=== PATIENT | female | born 1935 | race Caucasian/White ===

== ENCOUNTER 2021-05-21 07:52 | Day surgery (SDC) | payer MEDICARE, OTHER ==
[2021-05-17 12:32] LABS: BASOPHILS % (AUTO) 0.5 % (0-1); EOSINOPHILS # (AUTO) 0.1 X10'3 (0-0.9); LYMPHOCYTES # (AUTO) 0.9 X10'3 (1.1-4.8); MEAN CORPUSCULAR HGB CONC 33.3 g/dL (33.0-36.5); MEAN CORPUSCULAR VOLUME 93.3 FL (78-98); MEAN PLATELET VOLUME 9.1 FL (7.4-10.4); MONOCYTES # (AUTO) 0.6 X10'3 (0-0.9); MONOCYTES % (AUTO) 8.3 % (2-12); NEUTROPHILS # (AUTO) 5.4 X10'3 (1.8-7.7); NEUTROPHILS % (AUTO) 77.2 % (42-75); PRE OP HEMATOCRIT 38.3 % (35.0-45.0); PRE OP HEMOGLOBIN 12.7 g/dL (12.0-16.0); PRE OP PLATELET COUNT 219 X10'3 (140-440); RED CELL DISTRIBUTION WIDTH 13.3 % (11.5-14.5)
[2021-05-17 12:54] LABS: ALBUMIN 4.3 G/DL (3.4-5.0); ALBUMIN/GLOBULIN RATIO 1.3 (1.1-1.5); ALKALINE PHOSPHATASE 65 IU/L (46-116); BLOOD UREA NITROGEN 10 MG/DL (7-18); BUN/CREATININE RATIO 14.5 (6.6-38.0); CALCIUM 8.6 MG/DL (8.5-10.1); CHLORIDE 100 MMOL/L (99-107); CREATININE 0.69 MG/DL (0.40-0.90); PRE OP ALT 26 U/L (30-65); PRE OP ANION GAP 11 (8-16); PRE OP AST 24 U/L (10-37); PRE OP BILIRUB, TOTAL 0.6 MG/DL (0.0-1.0); PRE OP GLUCOSE 98 MG/DL (70-104); PRE OP POTASSIUM 3.8 MMOL/L (3.4-5.1); PRE OP SODIUM 137 MMOL/L (135-145); TOTAL CARBON DIOXIDE 25.7 MMOL/L (24-32); TOTAL PROTEIN 7.5 G/DL (6.4-8.2); eGFR 81 ML/MIN
[~2021-05-21] VITALS: Ht 154.9 cm; Wt 42.6 kg
[2021-05-21] VITALS (7 sets, daily range): BP systolic 124–155; BP diastolic 60–78
[~2021-05-21 07:52] MED LIST: BISO5TAB29 PO; BUPIVAcaine/PF 2.5mg/ml (0.25%) 10ml vial ONE; CALC-853 PO; DOCUMENT DATE & TIME OF BETA-BLOCKER PO ONE; KRIL1CAP21 PO; LEVO100T9 PO; MAGN250T11 PO; MULT-1219 PO; OMEP-50 PO; OMEP40CA21 PO; SIMV-45 PO; cefazolin/dext.iso 2gm/100ml IV ONE; famotidine 20mg tablet PO ONE; ringers solution, lacted 1,000 ML IV SCH
[2021-05-21] MEDS ORDERED: meperidine/PF 25mg/ml syringe IV PRN ×3 (08:55)
[2021-05-21] MEDS ORDERED: morphine 2 MG/ML inj. syringe IV PRN (08:55)
[2021-05-21] MEDS ORDERED: proCHLORperazine 10 MG/2 ml inj IV PRN (08:55)
[2021-05-21] MEDS ORDERED: ringers solution, lacted 1,000 ML IV SCH (08:55)
[2021-05-21] MEDS ORDERED: ondansetron/PF 4mg/2ml inj IV PRN (08:55)
[2021-05-21] MEDS ORDERED: morphine 4 MG/ML inj SYRINge IV PRN (08:55)
[2021-05-21] MEDS ORDERED: LIDOcaine 0.5% (5mg/ml) 50ml vial ONE (10:15)
[2021-05-21] MEDS ORDERED: midazolam 1 mg/ML 2ml injection ONE (10:42)
[2021-05-21] MEDS ORDERED: fentaNYL/PF 50MCG/1 ML 2ML syringe ONE (10:42)
[2021-05-21] MEDS ORDERED: propofol inj 20 ML IV ONE (11:20)
--- NOTE | 2021-05-21 11:35 | NUR ---
Received from OR via [facility], accompanied by Anesthesiologist DR GIVENS and report given by Anesthesiologist. PATIENT AWAKE AND ALERT, NO S/S OF PAIN, V/S WNL, CSM INTACT, SCD ON, PIV TO LUE, RIGHT HAND ELEVATED WITH ICE, DSRG-CDI, FINGERS-PINK/WARM/+CAP REFILL
--- NOTE | 2021-05-21 12:35 | NUR ---
ALL DISCHARGE CRITERIA HAS BEEN MET. VSS, DENIES PAIN, SPLINT AND DRSG TO RIGHT HAND-CDI, FIRST FINGER AND THUMB EXPOSED-GOOD CSM, PINK, WARM, ABLE TO MOVE FINGERS, ABLE TO SAFELY AMBULATE AND TRANSFER SELF. IV TAKEN OUT WITHOUT ANY COMPLICATIONS. ALL DISCHARGE INSTRUCTIONS COVERED WITH PATIENT AND ALL QUESTIONS ANSWERED. PATIENT TAKEN OUT VIA WHEELCHAIR WITH ALL BELONGINGS TO PERSONAL VEHICLE WHERE FAMILY DROVE PATIENT HOME.
== END 2021-05-21 12:35 | disposition home or self-care (01) ==
LOC: PAS 07:52
PROVIDERS: ATTEND Orthopaedic Surgery Hand Surgery
DX: M19.041 Primary osteoarthritis, right hand (principal); M67.441 Ganglion, right hand; E03.9 Hypothyroidism, unspecified; K21.9 Gastro-esophageal reflux disease without esophagitis; M81.0 Age-related osteoporosis without current pathological fracture; I10 Essential (primary) hypertension; M19.042 Primary osteoarthritis, left hand; Z20.822 Contact with and (suspected) exposure to COVID-19; Z98.890 Other specified postprocedural states; Z90.710 Acquired absence of both cervix and uterus; Z72.89 Other problems related to lifestyle; Z87.891 Personal history of nicotine dependence; Z96.643 Presence of artificial hip joint, bilateral; Z79.899 Other long term (current) drug therapy
CPT/HCPCS: 26860; 36415; 80053; 85025; 93005; C1713; J2001; J2250; J2704; J3010; J3490; U0003; U0005; Z7506; Z7512; A4215; A4615; J7120

== ENCOUNTER 2021-07-19 08:34 | Day surgery (SDC) | payer MEDICARE, OTHER ==
[2021-07-12 12:05] LABS: BASOPHILS # (AUTO) 0.1 X10'3 (0-0.2); BASOPHILS % (AUTO) 0.8 % (0-1); EOSINOPHILS # (AUTO) 0.1 X10'3 (0-0.9); EOSINOPHILS % (AUTO) 1.3 % (0-6); LYMPHOCYTES # (AUTO) 0.9 X10'3 (1.1-4.8); LYMPHOCYTES % (AUTO) 14.1 % (21-51); MEAN CORPUSCULAR HEMOGLOBIN 30.9 PG (27.0-31.0); MEAN CORPUSCULAR HGB CONC 33.1 g/dL (33.0-36.5); MEAN CORPUSCULAR VOLUME 93.5 FL (78-98); MEAN PLATELET VOLUME 9.7 FL (7.4-10.4); MONOCYTES # (AUTO) 0.6 X10'3 (0-0.9); MONOCYTES % (AUTO) 9.9 % (2-12); NEUTROPHILS # (AUTO) 4.7 X10'3 (1.8-7.7); NEUTROPHILS % (AUTO) 73.9 % (42-75); PRE OP HEMATOCRIT 39.3 % (35.0-45.0); PRE OP PLATELET COUNT 210 X10'3 (140-440); RED CELL DISTRIBUTION WIDTH 13.1 % (11.5-14.5)
[2021-07-12 12:19] LABS: ALBUMIN 3.9 G/DL (3.4-5.0); ALBUMIN/GLOBULIN RATIO 1.1 (1.1-1.5); ALKALINE PHOSPHATASE 53 IU/L (46-116); BLOOD UREA NITROGEN 14 MG/DL (7-18); BUN/CREATININE RATIO 23.3 (6.6-38.0); CALCIUM 8.9 MG/DL (8.5-10.1); CHLORIDE 102 MMOL/L (99-107); PRE OP ALT 25 U/L (30-65); PRE OP ANION GAP 9 (8-16); PRE OP AST 21 U/L (10-37); PRE OP BILIRUB, TOTAL 0.4 MG/DL (0.0-1.0); PRE OP GLUCOSE 101 MG/DL (70-104); PRE OP POTASSIUM 4.1 MMOL/L (3.4-5.1); PRE OP SODIUM 140 MMOL/L (135-145); TOTAL CARBON DIOXIDE 28.6 MMOL/L (24-32); TOTAL PROTEIN 7.3 G/DL (6.4-8.2); eGFR > 90 ML/MIN
[~2021-07-19] VITALS: Ht 152.4 cm; Wt 42.2 kg
[~2021-07-19 08:34] MED LIST changes: +ASPI-529 PO; -BUPIVAcaine/PF 2.5mg/ml (0.25%) 10ml vial ONE; -SIMV-45 PO; -cefazolin/dext.iso 2gm/100ml IV ONE; +cefazolin/dext.iso 2gm/50ml 50 ML IV ONE
[2021-07-19 09:05] VITALS: BP 111/70
[2021-07-19] MEDS ORDERED: labetalol 20mg/4ml (5mg/ml) syringe IV PRN (10:15)
[2021-07-19] MEDS ORDERED: morphine 4 MG/ML inj SYRINge IV PRN (10:15)
[2021-07-19] MEDS ORDERED: ringers solution, lacted 1,000 ML IV SCH (10:15)
[2021-07-19] MEDS ORDERED: morphine 2 MG/ML inj. syringe IV PRN (10:15)
[2021-07-19] MEDS ORDERED: fentaNYL/PF 50MCG/1 ML 2ML syringe IV PRN ×2 (10:15)
[2021-07-19] MEDS ORDERED: hydrALAZINE 20mg/ml inj. IV PRN (10:15)
[2021-07-19] MEDS ORDERED: ondansetron/PF 4mg/2ml inj IV PRN (10:15)
[2021-07-19] MEDS ORDERED: midazolam 1 mg/ML 2ml injection ONE ×2 (11:04→11:50)
[2021-07-19] MEDS ORDERED: ROPIVAcaine 0.5% (5mg/ml) 30ml vial ONE (11:48)
[2021-07-19 12:30] VITALS: BP 139/69
--- NOTE | 2021-07-19 12:30 | NUR ---
PT ARRIVED TO RECOVERY ROOM VIA GURNEY, ACCOMPANIED BY DR MACHADO, ANESTHESIA, REPORT GIVEN. PT AWAKE, DENIES PAIN, VSS, LEFT HAND WRAPPED-DRSG INTACT- MIDDLE FINGER SPLINTED, SOME DRAINAGE NOTED, NO REINFORCEMENT NEEDED, ICE APPLIED. 20G PIV TO LUIS
[2021-07-19 12:40] VITALS: BP 143/63
[2021-07-19 12:50] VITALS: BP 131/69
[2021-07-19 13:00] VITALS: BP 141/59
--- NOTE | 2021-07-19 13:30 | NUR ---
PT UP AND GETTING DRESSED, VSS, DENIES PAIN, PIV D/CD-CANULA INTACT, DRSG TO LEFT HAND-INTACT WITH SPLINT, SMALL AMOUNT OF DRAINAGE UNCHANGED FROM ARRIVAL, CSM INTACT TO LEFT HAND/FINGERS, DISCHARGE INSTRUCTIONS GIVEN TO PT-ALL QUESTIONS ANSWERED, PT TAKEN WITH ALL BELONGINGS TO SONS VEHICLE FOR TRANSPORT HOME.
== END 2021-07-19 13:30 | disposition home or self-care (01) ==
LOC: PAS 08:34
PROVIDERS: ATTEND Orthopaedic Surgery Hand Surgery
DX: M19.042 Primary osteoarthritis, left hand (principal); M19.041 Primary osteoarthritis, right hand; Z20.822 Contact with and (suspected) exposure to COVID-19; Z79.899 Other long term (current) drug therapy; Z79.82 Long term (current) use of aspirin; Z98.890 Other specified postprocedural states; Z90.710 Acquired absence of both cervix and uterus; Z96.649 Presence of unspecified artificial hip joint; Z87.891 Personal history of nicotine dependence; Z72.89 Other problems related to lifestyle
CPT/HCPCS: 26860; 36415; 80053; 82948; 85025; C1713; J2250; J7120; U0003; U0005; Z7506; Z7512; A4215; A4618; A7000; J2795

== ENCOUNTER 2022-02-14 05:50 | Day surgery (SDC) | payer MEDICARE, OTHER ==
[2022-02-07 12:30] LABS: BASOPHILS # (AUTO) 0.1 X10'3 (0-0.2); BASOPHILS % (AUTO) 0.8 % (0-1); EOSINOPHILS # (AUTO) 0.1 X10'3 (0-0.9); EOSINOPHILS % (AUTO) 0.9 % (0-6); LYMPHOCYTES % (AUTO) 15.8 % (21-51); MEAN CORPUSCULAR HEMOGLOBIN 30.5 PG (27.0-31.0); MEAN CORPUSCULAR HGB CONC 33.7 g/dL (33.0-36.5); MEAN CORPUSCULAR VOLUME 90.3 FL (78-98); MEAN PLATELET VOLUME 9.2 FL (7.4-10.4); MONOCYTES # (AUTO) 0.5 X10'3 (0-0.9); MONOCYTES % (AUTO) 8.1 % (2-12); NEUTROPHILS # (AUTO) 4.9 X10'3 (1.8-7.7); NEUTROPHILS % (AUTO) 74.4 % (42-75); PRE OP HEMATOCRIT 38.9 % (35.0-45.0); PRE OP HEMOGLOBIN 13.1 g/dL (12.0-16.0); PRE OP PLATELET COUNT 209 X10'3 (140-440); RED BLOOD COUNT 4.31 X10'6 (4.20-5.60); RED CELL DISTRIBUTION WIDTH 13.3 % (11.5-14.5)
[2022-02-07 12:52] LABS: ALBUMIN 4.2 G/DL (3.4-5.0); ALBUMIN/GLOBULIN RATIO 1.1 (1.1-1.5); ALKALINE PHOSPHATASE 43 IU/L (46-116); BLOOD UREA NITROGEN 16 MG/DL (7-18); BUN/CREATININE RATIO 22.5 (6.6-38.0); CALCIUM 9.3 MG/DL (8.5-10.1); CREATININE 0.71 MG/DL (0.40-0.90); PRE OP ALT 25 U/L (30-65); PRE OP AST 30 U/L (10-37); PRE OP BILIRUB, TOTAL 0.6 MG/DL (0.0-1.0); PRE OP GLUCOSE 93 MG/DL (70-104); TOTAL PROTEIN 7.9 G/DL (6.4-8.2); eGFR 78 ML/MIN
[2022-02-07 13:10] LABS: CHLORIDE 97 MMOL/L (99-107); PRE OP ANION GAP 13 (8-16); PRE OP POTASSIUM 3.7 MMOL/L (3.4-5.1); PRE OP SODIUM 135 MMOL/L (135-145); TOTAL CARBON DIOXIDE 25.5 MMOL/L (24-32)
[~2022-02-14] VITALS: Ht 149.9 cm; Wt 42.0 kg
[2022-02-14] VITALS (7 sets, daily range): BP systolic 128–140; BP diastolic 58–80
[~2022-02-14 05:50] MED LIST changes: -OMEP-50 PO; +OMEP20CA16 PO; +SIMV-45 PO; +ceFAZolin inj. 2,000 MG in dextrose 5%-water 100 ML IV ONE; -cefazolin/dext.iso 2gm/50ml 50 ML IV ONE
[2022-02-14] MEDS ORDERED: LIDOcaine 0.5% (5mg/ml) 50ml vial ONE (07:11)
[2022-02-14] MEDS ORDERED: proCHLORperazine 10 MG/2 ml inj IV PRN (07:40)
[2022-02-14] MEDS ORDERED: ringers solution, lacted 1,000 ML IV SCH (07:40)
[2022-02-14] MEDS ORDERED: morphine 4 MG/ML inj SYRINge IV PRN (07:40)
[2022-02-14] MEDS ORDERED: morphine 2 MG/ML inj. syringe IV PRN (07:40)
[2022-02-14] MEDS ORDERED: ondansetron/PF 4mg/2ml inj IV PRN (07:40)
[2022-02-14] MEDS ORDERED: meperidine/PF 25mg/ml syringe IV PRN ×3 (07:40)
[2022-02-14] MEDS ORDERED: fentaNYL/PF 50MCG/1 ML 2ML syringe ONE (07:54)
[2022-02-14] MEDS ORDERED: midazolam 1 mg/ML 2ml injection ONE (07:55)
[2022-02-14] MEDS ORDERED: BUPIVAcaine 0.5% inj/PF 30 ML ONE (08:09)
[2022-02-14] MEDS ORDERED: BUPIVAcaine 0.5% inj/PF 30 ml vial IJ ONE (08:29)
[2022-02-14] MEDS ORDERED: propofol inj 20 ML IV ONE (08:31)
--- NOTE | 2022-02-14 08:41 | NUR ---
Received from OR via [facility], accompanied by Anesthesiologist DR GIVENS and report given by Anesthesiologist. PT AWAKE, DENIES PAIN, LEFT HAND AND INDEX FINGER W/MEHUL WRAP COVERING INCISION/SPLINT CDI. FINGERS PWD, SHEARER HELPER 1-2 SECONDS. Addendum: 02/14/22 at 0857 by Dinorah Ralph RN Amended: Links added.
--- NOTE | 2022-02-14 09:51 | NUR ---
PT UP AND ABLE TO AMBULATE SAFELY, TOLERATING ORAL INTAKE. D/C INSTRUCTIONS GIVEN AND GONE OVER W/PT WHO VERBALIZED UNDERSTANDING. PT D/CD TO HOME VIA W/C TO PRIVATE VEHICLE W/O INCIDENT W/FAMILY MEMBER. Addendum: 02/14/22 at 1010 by Dinorah Ralph RN Amended: Links added.
== END 2022-02-14 09:51 | disposition home or self-care (01) ==
LOC: PAS 05:50
PROVIDERS: ATTEND Orthopaedic Surgery Hand Surgery
DX: M19.042 Primary osteoarthritis, left hand (principal); Z79.899 Other long term (current) drug therapy; Z20.822 Contact with and (suspected) exposure to COVID-19; Z90.710 Acquired absence of both cervix and uterus; Z98.890 Other specified postprocedural states; Z96.643 Presence of artificial hip joint, bilateral; Z87.891 Personal history of nicotine dependence; Z72.89 Other problems related to lifestyle
CPT/HCPCS: 26531; 36415; 80053; 82948; 85025; 93005; J0690; J2250; J2704; J3010; J3490; J7030; J7060; J7120; L8630; S0020; U0003; U0005; Z7506; Z7512; A4215; A4618; A7000

== ENCOUNTER 2022-06-13 08:25 | Day surgery (SDC) | payer MEDICARE, OTHER ==
[2022-06-02 10:47] LABS: BASOPHILS # (AUTO) 0.1 X10'3 (0-0.2); BASOPHILS % (AUTO) 0.9 % (0-1); EOSINOPHILS # (AUTO) 0.1 X10'3 (0-0.9); LYMPHOCYTES # (AUTO) 0.9 X10'3 (1.1-4.8); MEAN CORPUSCULAR HGB CONC 33.8 g/dL (33.0-36.5); MEAN CORPUSCULAR VOLUME 91.9 FL (78-98); MEAN PLATELET VOLUME 9.4 FL (7.4-10.4); MONOCYTES # (AUTO) 0.7 X10'3 (0-0.9); MONOCYTES % (AUTO) 9.8 % (2-12); NEUTROPHILS # (AUTO) 5.7 X10'3 (1.8-7.7); NEUTROPHILS % (AUTO) 76.3 % (42-75); PRE OP HEMATOCRIT 38.9 % (35.0-45.0); PRE OP HEMOGLOBIN 13.1 g/dL (12.0-16.0); PRE OP PLATELET COUNT 207 X10'3 (140-440); RED BLOOD COUNT 4.23 X10'6 (4.20-5.60); RED CELL DISTRIBUTION WIDTH 13.1 % (11.5-14.5)
[2022-06-02 10:53] LABS: ALBUMIN/GLOBULIN RATIO 1.1 (1.1-1.5); ALKALINE PHOSPHATASE 44 IU/L (46-116); BLOOD UREA NITROGEN 12 MG/DL (7-18); BUN/CREATININE RATIO 18.8 (6.6-38.0); CALCIUM 8.9 MG/DL (8.5-10.1); CHLORIDE 99 MMOL/L (99-107); CREATININE 0.64 MG/DL (0.40-0.90); PRE OP ALT 28 U/L (30-65); PRE OP ANION GAP 10 (8-16); PRE OP AST 29 U/L (10-37); PRE OP BILIRUB, TOTAL 0.3 MG/DL (0.0-1.0); PRE OP GLUCOSE 109 MG/DL (70-104); PRE OP POTASSIUM 3.9 MMOL/L (3.4-5.1); PRE OP SODIUM 137 MMOL/L (135-145); TOTAL CARBON DIOXIDE 28.5 MMOL/L (24-32); TOTAL PROTEIN 7.6 G/DL (6.4-8.2); eGFR 88 ML/MIN
[~2022-06-13] VITALS: Ht 149.9 cm; Wt 41.3 kg
[~2022-06-13 08:25] MED LIST changes: +BUPIVAcaine/PF 2.5mg/ml (0.25%) 10ml vial ONE
[2022-06-13] MEDS ORDERED: LIDOcaine 0.5% (5mg/ml) 50ml vial ONE (10:13)
[2022-06-13 11:41] VITALS: BP 134/72
[2022-06-13 11:43] VITALS: BP 134/72
[2022-06-13] MEDS ORDERED: fentaNYL/PF 50MCG/1 ML 2ML syringe ONE (13:17)
[2022-06-13] MEDS ORDERED: midazolam 1 mg/ML 2ml injection ONE (13:17)
[2022-06-13] MEDS ORDERED: morphine 2 MG/ML inj. syringe IV PRN (13:55)
[2022-06-13] MEDS ORDERED: ringers solution, lacted 1,000 ML IV SCH (13:55)
[2022-06-13] MEDS ORDERED: HYDROmorphone/PF 0.2 MG/ML SYRINGE IV PRN (13:55)
[2022-06-13] MEDS ORDERED: ondansetron/PF 4mg/2ml inj IV PRN (13:55)
[2022-06-13] MEDS ORDERED: propofol inj 20 ML IV ONE (14:35)
[2022-06-13 14:40] VITALS: BP 147/61
--- NOTE | 2022-06-13 14:40 | NUR ---
Received from OR via [facility], accompanied by Anesthesiologist DR. ALBERT and report given by Anesthesiolgist. DENIES PAIN. DRESSING TO LEFT HAND CDI, ICE APPLIED. RIGH HAND 20G PIV WITH LR RUNNING AT 100ML/HR. VS WNL'S. ALERT, FORGETFUL BUT APPROPRIATE.
[2022-06-13 14:50] VITALS: BP 129/51
[2022-06-13 15:00] VITALS: BP 144/58
[2022-06-13 15:10] VITALS: BP 142/61
--- NOTE | 2022-06-13 15:10 | NUR ---
PATIENT MEETS DISCHARGE CRITERIA. SHE IS IN A HURRY TO GET HOME TO HER , THAT IS WITH A SITTER AND WILL NOT HAVE COVERAGE AT 1530. DENIES PAIN. PIV REMOVED. DISCHARGE INSTRUCTIONS REVIEWED AND SIGNED. ALL BELONGINGS ACCOUNTED FOR AND DISCHARGED WITH PATIENT. DRESSING CDI.
== END 2022-06-13 15:10 | disposition home or self-care (01) ==
LOC: PAS 08:25
PROVIDERS: ATTEND Orthopaedic Surgery Hand Surgery
DX: M19.042 Primary osteoarthritis, left hand (principal); M19.041 Primary osteoarthritis, right hand; K21.9 Gastro-esophageal reflux disease without esophagitis; Z79.899 Other long term (current) drug therapy; Z98.890 Other specified postprocedural states; Z90.710 Acquired absence of both cervix and uterus; Z96.649 Presence of unspecified artificial hip joint; Z72.89 Other problems related to lifestyle; Z87.891 Personal history of nicotine dependence
CPT/HCPCS: 26531; 36415; 80053; 82948; 85025; 87811; J0690; J2250; J2704; J3010; J3490; J7030; J7060; J7120; L8630; Z7506; Z7512; A4215; A4618; A7000

== ENCOUNTER 2023-12-04 08:02 | Day surgery (SDC) | payer MEDICARE, OTHER ==
[2023-11-30 14:44] LABS: BASOPHILS % (AUTO) 0.6 % (0-1); EOSINOPHILS # (AUTO) 0.1 X10'3 (0-0.9); EOSINOPHILS % (AUTO) 2.1 % (0-6); LYMPHOCYTES # (AUTO) 1.2 X10'3 (1.1-4.8); LYMPHOCYTES % (AUTO) 17.3 % (21-51); MEAN CORPUSCULAR HEMOGLOBIN 31.6 PG (27.0-31.0); MEAN CORPUSCULAR HGB CONC 34.2 g/dL (33.0-36.5); MEAN CORPUSCULAR VOLUME 92.6 FL (78-98); MEAN PLATELET VOLUME 8.6 FL (7.4-10.4); MONOCYTES # (AUTO) 0.7 X10'3 (0-0.9); NEUTROPHILS # (AUTO) 4.8 X10'3 (1.8-7.7); PRE OP HEMATOCRIT 36.1 % (35.0-45.0); PRE OP HEMOGLOBIN 12.3 g/dL (12.0-16.0); PRE OP PLATELET COUNT 219 X10'3 (140-440); PRE OP WHITE BLOOD COUNT 6.8 10'3 (4.8-10.8)
[2023-11-30 15:05] LABS: ALBUMIN 3.6 G/DL (3.4-5.0); ALBUMIN/GLOBULIN RATIO 1.2 (1.1-1.5); ALKALINE PHOSPHATASE 34 IU/L (46-116); BLOOD UREA NITROGEN 9 MG/DL (7-18); BUN/CREATININE RATIO 9.4 (10.0-20.0); CALCIUM 8.3 MG/DL (8.5-10.1); CHLORIDE 97 MMOL/L (99-107); CREATININE 0.96 MG/DL (0.40-0.90); PRE OP ALT 20 U/L (30-65); PRE OP ANION GAP 8 (8-16); PRE OP AST 20 U/L (10-37); PRE OP BILIRUB, TOTAL 0.4 MG/DL (0.0-1.0); PRE OP GLUCOSE 90 MG/DL (70-104); PRE OP SODIUM 131 MMOL/L (135-145); TOTAL CARBON DIOXIDE 26.4 MMOL/L (24-32); TOTAL PROTEIN 6.7 G/DL (6.4-8.2); eGFR 55 ML/MIN
[2023-12-04] VITALS (8 sets, daily range): BP systolic 129–160; BP diastolic 56–80; PULSE 57–78; RESP 11–16; TEMP 97.4; O2SAT 96–99
[~2023-12-04] VITALS: Ht 152.4 cm; Wt 40.9 kg
[2023-12-04] MEDS: cefazolin 2gm/D5W 100mL 100 ML IV ONE (05:30)
[~2023-12-04 08:02] MED LIST changes: -BUPIVAcaine/PF 2.5mg/ml (0.25%) 10ml vial ONE; -DOCUMENT DATE & TIME OF BETA-BLOCKER PO ONE; -ceFAZolin inj. 2,000 MG in dextrose 5%-water 100 ML IV ONE; -famotidine 20mg tablet PO ONE; -ringers solution, lacted 1,000 ML IV SCH
[2023-12-04] MEDS ORDERED: ringers solution, lacted 1,000 ML IV SCH (09:45)
[2023-12-04] MEDS ORDERED: proCHLORperazine 10 MG/2 ml inj IV PRN (09:45)
[2023-12-04] MEDS ORDERED: morphine 4 MG/ML inj SYRINge IV PRN (09:45)
[2023-12-04] MEDS ORDERED: ondansetron/PF 4mg/2ml inj IV PRN (09:45)
[2023-12-04] MEDS ORDERED: morphine 2 MG/ML inj. syringe IV PRN (09:45)
[2023-12-04] MEDS ORDERED: meperidine/PF 25mg/ml syringe IV PRN ×3 (09:45)
[2023-12-04] MEDS: ringers solution, lacted 1,000 ML IV SCH (10:45)
[2023-12-04] MEDS: famotidine 20mg tablet PO ONE (10:46)
[2023-12-04] MEDS ORDERED: fentaNYL/PF 50MCG/1 ML 2ML syringe ONE (11:00)
[2023-12-04] MEDS ORDERED: LIDOcaine 0.5% (5mg/ml) 50ml vial ONE (11:01)
[2023-12-04] MEDS ORDERED: propofol inj 20 ML IV ONE (11:01)
[2023-12-04] MEDS ORDERED: BUPIVAcaine/PF 2.5mg/ml (0.25%) 10ml vial ONE (11:06)
[2023-12-04] MEDS: BUPIVAcaine/PF 2.5mg/ml (0.25%) 10ml vial IJ ONE (11:33)
== END 2023-12-04 13:14 | disposition home or self-care (01) ==
LOC: PAS 08:02
PROVIDERS: ATTEND Orthopaedic Surgery Hand Surgery
DX: M19.041 Primary osteoarthritis, right hand (principal); I10 Essential (primary) hypertension; E03.9 Hypothyroidism, unspecified; K21.9 Gastro-esophageal reflux disease without esophagitis; Z87.891 Personal history of nicotine dependence; Z79.82 Long term (current) use of aspirin; Z79.891 Long term (current) use of opiate analgesic; Z79.899 Other long term (current) drug therapy; Z90.49 Acquired absence of other specified parts of digestive tract; Z90.710 Acquired absence of both cervix and uterus; Z96.643 Presence of artificial hip joint, bilateral; Z98.890 Other specified postprocedural states
CPT/HCPCS: 26860; 26861; 36415; 80053; 82948; 85025; 93005; C1713; J0690; J2704; J3010; J3490; J7030; J7120; Z7506; Z7508; Z7512; A4215; A4618; A6449; A7000; C1769